=== PATIENT | female | born 1945 | race Caucasian/White ===

== ENCOUNTER → 2021-09-01 15:43 | Outpatient (BNVA) | payer MEDICARE, SELFPAY | PROVIDERS: PCP Internal Medicine; Visit Provider Psychiatry & Neurology Neurology | DX: R26.89 Other abnormalities of gait and mobility (principal) | CPT/HCPCS: 99212 ==

== ENCOUNTER 2022-12-21 13:43 | Outpatient (AMB) | payer MEDICARE, BC, SELFPAY ==
--- NOTE | 2022-12-21 13:44 | MHC.OFFVIS ---
Intake Vital Signs 12/21/22 13:47 Height 5 ft 3 in Weight 124 lb 6 oz BMI 22.0 BP 142/74 H Blood Pressure Location Lt brachial Position Sitting Respiration 15 Pulse 83 Pulse Source Pulse Oximeter Pulse Oximetry (%) 98 Oxygen Delivery Method Room Air Intake Visit Reasons: 9 month follow up /Confirmed Intake Note: Pt presents to the officed for follow up of her gait disorder. She reports her symptoms are unchanged since her last visit. Allergies No Known Allergies Allergy (Verified 12/21/22 13:46) HPI HPI Comments History of Present Illness Details 77y/o female comes for follow up of her gait disorder. She is doing better, exercise regularly. she had 2 falls since her last visit. Both were at night when she woke up in the middle of the night to use the bathroom and did not use the walker. Now she uses walker when she is out and uses a cane at home. Denies back pain, neck pain Memory is good No tremors PFSH Medical History FH: cholecystectomy Impaired fasting glucose Osteopenia Graves disease Hyperlipidemia HTN (hypertension) History of gallbladder disease Surgical History H/O: hysterectomy Hx of cholecystectomy Hx of tonsillectomy Hx of tonsillectomy Social History Household Members: None Alcohol intake: current Patient Tobacco Use Status: Former Tobacco user Physical Exam Vital Signs: Last Vital Signs Pulse 83 12/21/22 13:47 Resp 15 12/21/22 13:47 BP 142/74 H 12/21/22 13:47 Pulse Ox 98 12/21/22 13:47 Oxygen Delivery Method Room Air 12/21/22 13:47 BMI result Body Mass Index 22.0 Const Orientation/consciousness: patient oriented x3 Eyes Pupils: Equal, round and reactive pupils present Neuro Other: mild wide based, good posture , small steps - better with walker General: patient oriented x3, tone normal, moves all extremities and no focal motor deficits Cranial nerves: Yes Facial sensation intact/muscles of mastication intact, Yes Equal, round and reactive pupils present, Yes Bilaterally intact EOM present, Yes Nystagmus not present, Yes Normal facial strength present and Yes Midline tongue present Assessment & Plan Assessment & Plan (1) Multifactorial gait disorder: Code(s): R26.89 - Other abnormalities of gait and mobility Plan Continue exercise Discussed fall prevention No evidence of parkinsons disease Coding Level of Care Code Est Pt Level 3 (66353) Diagnoses Multifactorial gait disorder R26.89
[2022-12-21 13:47] VITALS: BP 142/74; PULSE 83; RESP 15; O2SAT 98; BMI 22.0
== END 2022-12-21 14:35 | disposition home or self-care (01) ==
PROVIDERS: Visit Provider Psychiatry & Neurology Neurology
DX: R26.89 Other abnormalities of gait and mobility (principal)
CPT/HCPCS: 99213

== ENCOUNTER → 2022-12-21 13:43 | Outpatient (BNVA) | payer MEDICARE, BC, SELFPAY | PROVIDERS: Visit Provider Psychiatry & Neurology Neurology | DX: R26.89 Other abnormalities of gait and mobility (principal) | CPT/HCPCS: 99212 ==